=== PATIENT | male | born 1995 | race Caucasian/White ===

== ENCOUNTER 2016-07-26 00:35 | Emergency (ER) | payer BC, OTHER ==
[~2016-07-26] VITALS: Ht 193 cm; Wt 108.6 kg
[2016-07-26 00:41] VITALS: TEMP 37.4; Ht 193 cm; Wt 108.6 kg
[2016-07-26] MEDS ORDERED: SODIUM CHLORIDE 0.9% 1000ML 1,000 ML IV STA ×2 (01:32)
[2016-07-26 01:35] VITALS: O2SAT 100
[2016-07-26] MEDS ORDERED: LIDOCAINE/EPINEPH/TETRACAINE 1 EA SYR EXT STA (01:39)
[2016-07-26 01:43] LABS: BASO % 0.3 %; BASO ABS # 0.02 K/uL (0-0.2); COMPLETE YES; HEMATOCRIT 41.4 % (42-52); IG% 0.3 %; LYMPH % 28.9 %; LYMPH ABS # 2.08 K/uL (1.2-3.4); MEAN CELL VOLUME 83.1 fL (80-100); MEAN CORPUSCULAR HEMOGLOBIN 30.5 pg (25-34); MEAN CORPUSCULAR HGB CONC 36.7 g/dl (32-36); MEAN PLATELET VOLUME 10.1 fL (7.4-10.4); MONO % 9.3 %; NEUT % 60.2 %; PLATELET COUNT 238 K/uL (130-400); RED BLOOD COUNT 4.98 M/uL (4.7-6.1); WHITE BLOOD COUNT 7.19 K/uL (4.8-10.8)
[2016-07-26 01:53] LABS: CALCIUM 9.3 mg/dl (8.5-10.1); CREATININE 1.5 mg/dl (0.60-1.40); POTASSIUM 3.5 mmol/L (3.5-5.1)
[2016-07-26 02:04] LABS: THYROID STIMULATING HORMONE 4.76 uIu/ml (0.300-4.500)
[2016-07-26 02:57] VITALS: BP 145/88; PULSE 95; O2SAT 99
--- NOTE | 2016-07-26 05:59 | EMERGENCY ROOM VISIT NOTE ---
History First contact with patient: 00:58 Chief Complaint: SYNCOPE Stated Complaint: FACE LACERATION IMPACT Nursing Triage Summary: Patient ambulatory to triage, states "I got faint. I have passed out before so I knew it was coming. I got really hot and took two steps. I passed out and then fell. I was passed out for no more than 10 seconds." Patient has an abrasion to the right lateral forehead and a laceration to the right yazidi area. History of Present Illness The patient is a 21 year old male who presents to the Emergency Room with complaints of syncopal episode tonight at [facility]. Patient states he got lightheaded and passed out. He was there supporting his girlfriend who is dissipating. Patient states he got lightheaded went to his knees passed out and struck his head on the ground. Brief LOC. He has passed out before. He did not drink much water today. Patient denies headache, facial pain, dental pain, neck pain, chest pain, dyspnea, abdominal pain or any other medical complaints. Tetanus is current. All alcohol or drug today. EMS was summoned. He then brought here. Review of Systems See HPI for pertinent positives & negatives. A total of 10 systems reviewed and were otherwise negative. Past Medical/Surgical History Syncope Social History Smoking Status: Never Smoker Smokeless Tobacco Use: No Alcohol Use: none Drug Use: none Marital Status: in relationship Occupation Status: [employer] student Current/Historical Medications No Active Prescriptions or Reported Meds Allergies Coded Allergies: No Known Allergies (Unverified , 07/26/16) Physical Exam Vital Signs Date Time Temp Pulse Resp B/P Pulse Ox O2 Delivery O2 Flow Rate FiO2 07/26/16 02:57 88 18 147/78 99 Room Air 96 150/92 95 145/88 07/26/16 02:28 92 20 138/86 99 Room Air 07/26/16 01:35 100 Room Air 07/26/16 01:22 76 20 140/70 100 Room Air 93 149/82 103 126/88 07/26/16 01:02 75 07/26/16 00:41 37.4 84 16 143/82 99 Room Air Pain Rating (0-10): 4.0 Physical Exam VITALS: Vitals are noted on the nurse's note and reviewed by myself. Vital signs stable. GENERAL: Pleasant male interactive and smiling, in no acute distress, nondiaphoretic, well-developed well-nourished. SKIN: Superficial forehead abrasion with a 2.6 cm right temporal laceration is gaping and appears clean The rest of the skin was without rashes, erythema, edema, or bruising. There is no tenting of the skin. Capillary reflex less than 2 seconds. HEAD: Normocephalic atraumatic. EARS: External auditory canals clear, tympanic membranes pearly stephen without erythema or effusion bilaterally. EYES: Pupils equal round and reactive to light and accommodation. Conjunctivae without injection, sclerae without icterus. Extraocular movements intact. NOSE: Patent, turbinates without inflammation or discharge. No sinus tenderness. Face: Nontender to palpation. Patient can fully open and close jaw without pain. Dental exam: No loose or chipped teeth. MOUTH: Mucous membranes moist. Tonsils are not enlarged. Pharynx without erythema or exudate. Uvula midline. Airway patent. Tongue does not deviate. NECK: Supple without nuchal rigidity. No lymphadenopathy. No thyromegaly. Cervical spine is nontender. No JVD. HEART: Regular rate and rhythm without murmurs gallops or rubs. LUNGS: Clear to auscultation bilaterally without wheezes, rales or rhonchi. No dullness to percussion. No retractions or accessory muscle use. ABDOMEN: Positive bowel sounds x 4. Normal tympanic percussion. Soft, nontender, without masses or organomegaly. Drake sign negative. No guarding or rebound tenderness. MUSCULOSKELETAL: No muscle atrophy, erythema, or edema noted. NEURO: Patient was alert and oriented to person place and time. Normal sensation to light and sharp touch. No focal neurological deficits. Medical Decision & Procedures Laboratory Results 07/26/16 00:55 Red Blood Count 4.98, Mean Corpuscular Volume 83.1, Mean Corpuscular Hemoglobin 30.5, Mean Corpuscular Hemoglobin Concent 36.7, Mean Platelet Volume 10.1, Neutrophils (%) (Auto) 60.2, Lymphocytes (%) (Auto) 28.9, Monocytes (%) (Auto) 9.3, Eosinophils (%) (Auto) 1.0, Basophils (%) (Auto) 0.3, Neutrophils # (Auto) 4.33, Lymphocytes # (Auto) 2.08, Monocytes # (Auto) 0.67, Eosinophils # (Auto) 0.07, Basophils # (Auto) 0.02 07/26/16 00:55 Test 07/26/16 00:55 White Blood Count 7.19 K/uL (4.8-10.8) Red Blood Count 4.98 M/uL (4.7-6.1) Hemoglobin 15.2 g/dL (14.0-18.0) Hematocrit 41.4 % (42-52) Mean Corpuscular Volume 83.1 fL (80-100) Mean Corpuscular Hemoglobin 30.5 pg (25-34) Mean Corpuscular Hemoglobin Concent 36.7 g/dl (32-36) Platelet Count 238 K/uL (130-400) Mean Platelet Volume 10.1 fL (7.4-10.4) Neutrophils (%) (Auto) 60.2 % Lymphocytes (%) (Auto) 28.9 % Monocytes (%) (Auto) 9.3 % Eosinophils (%) (Auto) 1.0 % Basophils (%) (Auto) 0.3 % Neutrophils # (Auto) 4.33 K/uL (1.4-6.5) Lymphocytes # (Auto) 2.08 K/uL (1.2-3.4) Monocytes # (Auto) 0.67 K/uL (0.11-0.59) Eosinophils # (Auto) 0.07 K/uL (0-0.5) Basophils # (Auto) 0.02 K/uL (0-0.2) RDW Standard Deviation 37.4 fL (36.4-46.3) RDW Coefficient of Variation 12.4 % (11.5-14.5) Immature Granulocyte % (Auto) 0.3 % Immature Granulocyte # (Auto) 0.02 K/uL (0.00-0.02) Anion Gap 10.0 mmol/L (3-11) Est Creatinine Clear Calc Drug Dose 104.3 ml/min Estimated GFR () 75.5 Estimated GFR (Non- 65.1 BUN/Creatinine Ratio 20.0 (10-20) Calcium Level 9.3 mg/dl (8.5-10.1) Total Bilirubin 0.7 mg/dl (0.2-1) Direct Bilirubin 0.2 mg/dl (0-0.2) Aspartate Amino Transf (AST/SGOT) 25 U/L (15-37) Alanine Aminotransferase (ALT/SGPT) 41 U/L (12-78) Alkaline Phosphatase 63 U/L (45-117) Total Creatine Kinase 93 U/L (39-308) Total Protein 7.7 gm/dl (6.4-8.2) Albumin 4.7 gm/dl (3.4-5.0) Thyroid Stimulating Hormone (TSH) 4.760 uIu/ml (0.300-4.500) Medications Administered Medications (Trade) Dose Ordered Sig/Mart Route Start Time Stop Time Status Last Admin Dose Admin Sodium Chloride 1,000 ml @ 999 mls/hr Q1H1M STAT IV 07/26/16 01:32 07/26/16 02:32 DC 07/26/16 01:32 999 MLS/HR Sodium Chloride (Nss 1000ml) 1,000 ml @ 200 mls/hr Q5H STAT IV 07/26/16 01:32 07/26/16 03:58 DC 07/26/16 01:32 200 MLS/HR Tetracaine/ Epinephrine/ Lidocaine (L.e.t. Gel 4%/ 1:100/0.5%) 1 ea NOW STAT EXT 07/26/16 01:39 07/26/16 01:41 DC 07/26/16 01:52 1 EA Procedure Location: face Total length: 2.6cm Complexity: simple Verbal consent was obtained after the risks and benefits were explained, including but not limited to bleeding, scarring, infection, pain, and bone/joint /nerve damage. At this time, the risks of the procedure are less than the risks of NOT performing the procedure. A time out was taken and the correct patient and site identified. The skin was prepped with betadine. The target area was anesthetized with LET. Copious irrigation was performed using NSS. The skin was re-prepped with betadine and a sterile field set. The wound was explored for foreign bodies and none found. Examination revealed no injury to deep structures such as tendons, bone, or significant blood vessels. Debridement was not performed. The wound edges were approximated using 4, 6-0 simple interrupted nylon sutures. Hemostasis and excellent approximation was achieved. Antibacterial ointment and a sterile dressing applied. Detailed wound care instructions and signs and symptoms of infection reviewed with the pt. No complications and the patient tolerated the procedure well. ED Course Prior records/ancillary studies reviewed. Triage Nursing notes reviewed. Additional history obtained from friend of family The patient's history was concerning for syncope. Differential diagnosis: Etiologies such as vasovagal event, infection, hypoglycemia, electrolyte abnormalities, cardiac sources, intracerebral event, toxicologic, neurologic, as well as others were entertained. Physical examination: Patient alert, interactive and well-appearing ER treatment provided: IV hydration with normal saline On reassessment the patient felt better. Diagnostics interpretation by me: ECG: Normal sinus, normal intervals, no acute ST-T wave changes. Impression normal sinus rhythm interpreted by myself The labs revealed elevated creatinine. Negative troponin Orthostatic positive This appears to be consistent with syncope most likely from dehydration. Patient was hydrated as above and felt much better. Laceration was repaired. Patient was neurovascularly and neurologically intact. He is well-appearing. He was advised to rest, stay well-hydrated and to follow-up with family care in a few days or here in the ER sooner for headache, fevers, confusion, worsening signs or symptoms or as needed.. By the evaluation outlined above emergent etiologies such as infection, hypoglycemia, electrolyte abnormalities, cardiac sources, intracerebral event, toxicologic, neurologic,as well as others were deemed relatively unlikely. Patient was counseled on head injury signs and symptoms and verbalized understanding of this. The pt informed about the findings as listed above. All questions were answered and pleased with the treatment. Return instructions were outlined and the patient was discharged in stable condition. Case reviewed with my attending Referral: The patient was referred back to their primary care physician for follow-up in 2 to 3 days for a recheck of the current condition. Medical Decision As above Impression Primary Impression: Head injury Additional Impressions: Facial abrasion Syncope Facial laceration Departure Information Dispostion Home / Self-Care Condition GOOD Prescriptions No Active Prescriptions or Reported Meds Forms HOME CARE DOCUMENTATION FORM, IMPORTANT VISIT INFORMATION Patient Instructions Syncope Causes, Dehydration, My [facility], ED Head Injury Closed, ED Laceration All Additional Instructions Read head injury handout and return for any symptoms. Tylenol 1000 mg as needed for pain (Maximum 3000 mg Tylenol in 24 hr period). Avoid alcohol and contact sports/activities for one week and follow up with family doctor prior to returning to these activities if still symptomatic. Ice and elevate head. Keep wound clean and dry. Do not allow any crusting or dried blood to accumulate on sutures. If this occurs, use a 1:1 solution of hydrogen peroxide/ water on a Q-tip to clean the wound. Use an antibiotic ointment for 3-4 days, then let wound dry. Suture removal in 5-7 days. Return sooner for any signs of infection (increasing redness, swelling, drainage). Ice and elevate for swelling and pain. Keep covered when in sun until sutures removed then SPF 50 or higher for one year. Vitamin E oil if desired two weeks after suture removal for reduction of scar Antibiotic ointment and bandage to the areas until healed. Follow up with family doctor or return for any signs of infection (increasing redness, swelling , drainage, or fever). Keep covered when in sun until fully healed then SPF 50 or higher until scar healed. Acetaminophen(Tylenol) may be used for fever or pain. Use 1000mg every six hours as needed. Avoid using more than 3000mg in a 24 hour period. Rest and drink plenty of fluids as tolerated. Continue current medications. Return to the ER immediately for worsening or persistent syncope, abdominal pain , vomiting, fevers, chest pains, difficulty breathing, worsening of your condition, or as needed. Follow up with your primary physician in 2-3 days for a recheck of your current condition and repeat kidney function test. Problem Qualifiers Primary Impression: Head injury Encounter type: initial encounter Qualified Codes: S09.90XA - Unspecified injury of head, initial encounter Additional Impressions: Syncope Encounter type: initial encounter
== END 2016-07-26 03:07 | disposition home or self-care (01) ==
LOC: C.EDB 00:38
DX: S01.81XA Laceration without foreign body of other part of head, initial encounter (principal); R55 Syncope and collapse; X58.XXXA Exposure to other specified factors, initial encounter

== ENCOUNTER → 2016-08-05 | Outpatient (CLI) | payer BC ==
--- NOTE | 2016-08-05 12:49 | DIAGNOSTIC IMAGING REPORT ---
MAXILLOFACIAL CT CT DOSE: 777.91 mGy.cm HISTORY: Trauma pain TECHNIQUE: Multiaxial CT images of the maxillofacial region were performed and reformatted in the coronal plane without the use of contrast. COMPARISON: None. FINDINGS: Nondisplaced cortical fractures of the anterior inferior right maxillary sinus wall. Nondisplaced hairline cortical fracture lateral wall right maxillary sinus. Small cortical fracture anterior aspect inferior orbital margin. Globes are symmetric. Retroseptal structures are unremarkable. No evidence for muscular entrapment. IMPRESSION: 1. Nondisplaced cortical fractures anterior and lateral wall right maxillary sinus 2. Nondisplaced cortical fractures anterior margin inferior orbital rim. 3. The globes and retroseptal structures are intact. 4. Study is otherwise negative Electronically signed by: Ozzie Coffman M.D. 08/05/2016 12:47 PM Dictated Date/Time: 08/05/2016 12:40 PM
== END | disposition home or self-care (01) ==
LOC: C.CTS 12:26
PROVIDERS: ATTEND Dentist Oral and Maxillofacial Surgery
DX: S02.80XA Fracture of other specified skull and facial bones, unspecified side, initial encounter for closed fracture (principal); S02.40CA Maxillary fracture, right side, initial encounter for closed fracture; X58.XXXA Exposure to other specified factors, initial encounter